=== PATIENT | female | born 1960 | race African-American/Black ===

== ENCOUNTER → 2016-05-17 | Outpatient (CLI) | payer OTHER ==
[2016-05-17 08:39] LABS: ABSOLUTE EOSINOPHILS # (AUTO) 0.1 10^3/uL (0.0-0.6); ABSOLUTE LYMPHOCYTES (AUTO) 1.7 10^3/uL (0.5-4.7); ABSOLUTE MONOCYTES (AUTO) 0.3 10^3/uL (0.1-1.4); BASOPHILS % (AUTO) 0.6 % (0-2); EOSINOPHILS % (AUTO) 3.5 % (0-6); HEMATOCRIT 39.5 % (36.0-47.0); HEMOGLOBIN 13.3 g/dL (12.0-15.5); HGB HCT DIFFERENCE 0.4; LYMPHOCYTES % (AUTO) 40.8 % (13-45); MEAN CORPUSCULAR HEMOGLOBIN 31.1 pg (27.0-33.4); MEAN CORPUSCULAR HGB CONC 33.5 g/dL (32.0-36.0); MEAN CORPUSCULAR VOLUME 93 fl (80-97); MONOCYTES % (AUTO) 7.9 % (3-13); RED BLOOD COUNT 4.27 10^6/uL (3.72-5.28); RED CELL DISTRIBUTION WIDTH 13.3 % (11.5-14.0); SEGMENTED NEUTROPHILS % (AUTO) 47.2 % (42-78); WHITE BLOOD COUNT 4.2 10^3/uL (4.0-10.5)
[2016-05-17 09:08] LABS: ALANINE AMINOTRANSFERASE 28 U/L (9-52); ALBUMIN 4.2 g/dL (3.5-5.0); ALKALINE PHOSPHATASE 65 U/L (38-126); AMYLASE 126 U/L (30-110); ANION GAP 12 (5-19); ASPARTATE AMINO TRANSFERASE 26 U/L (14-36); BILIRUBIN,TOTAL 1.2 mg/dL (0.2-1.3); BLOOD UREA NITROGEN 13 mg/dL (7-20); CALCIUM 9.6 mg/dL (8.4-10.2); CARBON DIOXIDE 24 mmol/L (22-30); CHLORIDE 105 mmol/L (98-107); CHOLESTEROL 195.44 mg/dL (0-200); CREATININE RESULT 0.83 mg/dL (0.52-1.25); Direct HDL 57 mg/dL (>40); GLUCOSE 83 mg/dL (75-110); LIPASE 221.9 U/L (23-300); POTASSIUM 4.1 mmol/L (3.6-5.0); TOTAL PROTEIN 7.3 g/dL (6.3-8.2); TRIGLYCERIDES 88 mg/dL (<150)
[2016-05-17 09:19] LABS: DIRECT LDL 115 mg/dL (<100)
--- NOTE | 2016-05-17 19:34 | EKG REPORT ---
SEVERITY:- ABNORMAL ECG - SINUS RHYTHM LEFT VENTRICULAR HYPERTROPHY ANTERIOR ST ELEVATION, PROBABLY DUE TO LVH : Confirmed by: Radha Kowalski 17-May-2016 19:33:56
== END ==
LOC: CCC 07:09
DX: R10.13 Epigastric pain (principal); Z87.11 Personal history of peptic ulcer disease; Z82.49 Family history of ischemic heart disease and other diseases of the circulatory system
CPT/HCPCS: 36415; 80053; 80061; 82150; 83036; 83690; 84443; 85025; 93005; 93010

== ENCOUNTER → 2016-05-21 | Outpatient (CLI) | payer OTHER | LOC: RAD 08:41 | DX: R10.13 Epigastric pain (principal); R63.4 Abnormal weight loss | CPT/HCPCS: 74249 ==

== ENCOUNTER → 2017-06-25 | Outpatient (CLI) | payer OTHER ==
--- NOTE | 2017-06-25 13:28 | RADIOLOGY REPORT (SQ) ---
EXAM DESCRIPTION: KNEE LEFT 4 VIEW; SHOULDER LEFT 2 OR MORE VIEWS; KNEE RIGHT 4 VIEWS; HIP BILATERAL ; T SPINE AP/LAT COMPLETED DATE/TIME: 06/25/2017 1:15 pm; 06/25/2017 1:00 pm REASON FOR STUDY: ARTHRITIS COMPARISON: See below. FINDINGS: Three views left shoulder: 2014 comparison. Normal bone density. No subluxation or disl ocation. AC and glenohumeral joints intact. No fracture or bone lesion. Clear visualized left lung . Two views thoracic spine: Normal alignment with relative preservation of the discs throughout. Soft tissues normal. Three views pelvis and bilateral hips: Pelvis intact. Relatively maintained bilateral hip joint spa heidi with no significant osteophyte formation. SI joints intact. No fracture or bone lesion. Four views right knee: Normal bone density. Preserved joint spaces throughout. No joint effusion, fracture or bone lesion. Four views left knee: Normal bone density. Preserved joint spaces throughout. No joint effusion, f racture or bone lesion. IMPRESSION: 1. Normal radiographs of the left shoulder, thoracic spine, pelvis and bilateral hips a s well as bilateral knees. TECHNICAL DOCUMENTATION: JOB ID: [id number] Reading location - IP/workstation name: [email or web address]
== END ==
LOC: RAD 11:58
DX: L98.499 Non-pressure chronic ulcer of skin of other sites with unspecified severity (principal); M19.90 Unspecified osteoarthritis, unspecified site; F32.9 Major depressive disorder, single episode, unspecified
CPT/HCPCS: 72070; 73522